=== PATIENT | female | born 1980 | race Caucasian/White ===

== ENCOUNTER 2016-11-08 15:59 | Emergency (ER) | payer OTHER ==
[2016-11-08 16:13] VITALS: BP 123/85
--- NOTE | 2016-11-08 19:13 | RAD ---
Indication: Right index finger injury. 3 views of the right index finger demonstrates no fracture although disc degenerative changes of the distal interphalangeal joint is noted. IMPRESSION: No definite fracture of the right index finger is noted.
--- NOTE | 2016-11-08 19:37 | UC ---
Hand/Wrist HPI - HPI Summary HPI Summary: SHUT RIGHT SECOND FINGER IN CAR DOOR. ABRASION TO FINGER. PAIN WITH BENDING AND BRUISING (TO MIDDLE PHALANGE). - History Of Current Complaint Chief Complaint: UCUpperExtremity Stated Complaint: FINGER INJURY Time Seen by Provider: 11/08/16 17:53 Hx Obtained From: Patient Hx Last Menstrual Period: 10/18/16 Onset/Duration: Sudden Onset, Lasting Hours, Still Present Severity Initially: Moderate Severity Currently: Moderate Character Of Pain: Dull, Aching Aggravating Factor(s): Movement, Flexion, Extension Related History: Dominant Hand Right - Allergies/Home Medications Allergies/Adverse Reactions: Allergies Allergy/AdvReac Type Severity Reaction Status Date / Time Azithromycin Allergy Mild Vomiting Verified 11/08/16 16:13 Erythromycin Allergy Mild Vomiting Verified 11/08/16 16:13 nuts Allergy Hives Uncoded 11/08/16 16:13 Home Medications: Home Medications NK [No Home Medications Reported] 11/08/16 [History Confirmed 11/08/16] PMH/Surg Hx/FS Hx/Imm Hx Previously Healthy: Yes - Surgical History Surgical History: Yes Surgery Procedure, Year, and Place: TUBAL LIGATION x2 - Family History Known Family History: Positive: Respiratory Disease - asthma - Social History Occupation: Employed Full-time Lives: With Family Alcohol Use: None Substance Use Type: None Smoking Status (MU): Heavy Every Day Tobacco Smoker Type: Cigarettes Amount Used/How Often: 199d Length of Time of Smoking/Using Tobacco: 12 Years Have You Smoked in the Last Year: Yes Household Exposure Type: Cigarettes Cessation Counseling: Patient Advised to Stop - Immunization History Most Recent Influenza Vaccination: current Review of Systems Constitutional: Negative Skin: Bruising Eyes: Negative ENT: Negative Respiratory: Negative Cardiovascular: Negative Gastrointestinal: Negative Genitourinary: Negative Motor: Negative Neurovascular: Negative Musculoskeletal: Arthralgia - RIGHT 2ND FINGER, Myalgia Neurological: Negative Psychological: Negative All Other Systems Reviewed And Are Negative: Yes Physical Exam Triage Information Reviewed: Yes Appearance: Well-Appearing, No Pain Distress, Well-Nourished Vital Signs: Initial Vital Signs Temp 98.3 F 11/08/16 16:08 Pulse 64 11/08/16 16:08 Resp 14 11/08/16 16:08 BP 123/85 11/08/16 16:08 Pulse Ox 98 11/08/16 16:08 Vital Signs Reviewed: Yes Eye Exam: Normal ENT Exam: Normal ENT: Positive: Normal ENT inspection, TMs normal Dental Exam: Normal Neck exam: Normal Neck: Positive: Supple, Nontender Respiratory Exam: Normal Respiratory: Positive: Chest non-tender, Lungs clear, Normal breath sounds Cardiovascular Exam: Normal Cardiovascular: Positive: RRR, No Murmur Abdominal Exam: Normal Musculoskeletal: Positive: No Edema, Strength Limited @ - RIGHT SECOND FINGER, ROM Limited @ - RIGHT SECOND FINGER Neurological Exam: Normal Psychological Exam: Normal Skin: Positive: Other - BRUISING & ABRASION RIGHT SECOND FINGER MIDDLE PHALANGE Hand/Wrist Course/Dx - Differential Dx/Diagnosis Differential Diagnosis/HQI/PQRI: Contusion, Dislocation, Fracture, Sprain, Strain, Tendonitis Provider Diagnoses: RIGHT SECOND FINGER SPRAIN, CONTUSION, ABRASION Discharge - Discharge Plan Condition: Stable Disposition: HOME Patient Education Materials: Finger Sprain (ED), Abrasion (ED), Crush Injury ( ED) Forms: *Work Release Referrals: [facility] [Outside] Jalyn Rangel MD [Primary Care Provider] -
== END 2016-11-08 19:43 | disposition home or self-care (01) ==
LOC: UCCORT 15:59
DX: S63.610A Unspecified sprain of right index finger, initial encounter (principal); S60.021A Contusion of right index finger without damage to nail, initial encounter; S60.410A Abrasion of right index finger, initial encounter; W23.0XXA Caught, crushed, jammed, or pinched between moving objects, initial encounter; Y93.9 Activity, unspecified; Y92.810 Car as the place of occurrence of the external cause; Z88.1 Allergy status to other antibiotic agents; F17.210 Nicotine dependence, cigarettes, uncomplicated
CPT/HCPCS: 73140; 99213; G0463

== ENCOUNTER 2018-03-11 16:09 | Emergency (ER) | payer OTHER ==
[2018-03-11] MEDS ORDERED: Nicotine Inhaler* 10 MG AMP INH PRN (18:17)
[2018-03-11] MEDS ORDERED: Mouth Piece, Nicotine* 1 EACH CARTRIDGE INH PRN (18:17)
--- NOTE | 2018-03-11 18:24 | ED ---
Substance Abuse/Use - HPI Summary HPI Summary: Patient is a 37 y/o F presenting to ED seeking detox for heroin usage. She reports that she has been having issues with heroin for 1.5 years. She states that she was recently having a difficult time at work and had a relapse. Patient reports that she has been using heavily over the past couple of weeks. Withdrawal Sx are denied. Patient reports last usage was the day before yesterday, states she took ecstasy last night. She states that she went to rehab before, with her being released from her most recent stay in November. She does not think outpatient rehab works for her and is interested in being detoxed as an in-patient. PMHx of anxiety, depression, she states she was prescribed Zoloft but does not take in. Chest pain, SOB, N/V/D, SI, HI are denied, PSHx of x2 tubal ligation. On triage, pain is rated 0/10, nothing is noted to aggravate/alleviate Sx. Home medications and allergies are reviewed. - History Of Current Complaint Chief Complaint: EDDetoxRequest Stated Complaint: DETOX Time Seen by Provider: 03/11/18 18:12 Hx Obtained From: Patient Hx Last Menstrual Period: 10/18/16 Onset/Duration of Drug/ETOH Abuse: Weeks - patient reports heroin usage for the past few weeks Ingestion History: Type/Name Of Drug - heroin, ecstasy Overdose Characteristics: IV - heroin Severity Currently: None - pain denied Aggravating Factor(s): Nothing Alleviating Factor(s): Nothing - Allergies/Home Medications Allergies/Adverse Reactions: Allergies Allergy/AdvReac Type Severity Reaction Status Date / Time MS Azithromycin Allergy Mild Vomiting Verified 03/11/18 16:22 [Azithromycin] MS Erythromycin Allergy Mild Vomiting Verified 03/11/18 16:22 [Erythromycin] nuts Allergy Hives Uncoded 03/11/18 16:22 PMH/Surg Hx/FS Hx/Imm Hx Respiratory History: Reports: Hx Asthma Sensory History: Denies: Hx Legally Blind Opthamlomology History: Denies: Hx Legally Blind Psychiatric History: Reports: Hx Anxiety - Surgical History Surgery Procedure, Year, and Place: TUBAL LIGATION x2 Infectious Disease History: No Infectious Disease History: Denies: Traveled Outside the [place] in Last 30 Days - Family History Known Family History: Positive: Respiratory Disease - asthma - Social History Alcohol Use: None Substance Use Type: Reports: None Hx Tobacco Use: Yes Smoking Status (MU): Heavy Every Day Tobacco Smoker Type: Cigarettes Amount Used/How Often: 199d Length of Time of Smoking/Using Tobacco: 12 Years Have You Smoked in the Last Year: Yes Review of Systems Positive: Other - patient is seeking detox for heroin usage Negative: Chest Pain Negative: Shortness Of Breath Negative: Vomiting, Diarrhea, Nausea Positive: Other - NEGATIVE: SI, HI All Other Systems Reviewed And Are Negative: Yes Physical Exam - Summary Physical Exam Summary: Appearance: Well-appearing, Well-nourished, lying in bed comfortably Skin: Warm, dry, no obvious rash Eyes: sclera anicteric, no conjunctival pallor ENT: mucous membranes moist, pharynx appears normal Neck: Supple, nontender Respiratory: Clear to auscultation, no signs of respiratory distress Cardiovascular: midl tachycardia. No murmurs. Normal distal pulses in tibial and radial bilaterally. Abdomen: Soft, nontender, normal active bowel sounds present Musculoskeletal: Normal, Strength/ROM Intact Neurological: A&Ox3, awake and alert, mentation is normal, speech is fluent and appropriate Psychiatric: affect is normal, does not appear anxious or depressed Triage Information Reviewed: Yes Vital Signs On Initial Exam: Initial Vitals Temp Pulse Resp BP Pulse Ox 98.9 F 100 18 140/92 100 03/11/18 16:19 03/11/18 16:19 03/11/18 16:19 03/11/18 16:19 03/11/18 16:19 Vital Signs Reviewed: Yes Diagnostics - Vital Signs Vital Signs Temp Pulse Resp BP Pulse Ox 03/11/18 16:19 98.9 F 100 18 140/92 100 - Laboratory Result Diagrams: 03/11/18 18:31 03/11/18 18:31 Lab Statement: Any lab studies that have been ordered have been reviewed, and results considered in the medical decision making process. Course/Dx - Diagnoses Provider Diagnoses: Substance abuse Discharge - Sign-Out/Discharge Documenting (check all that apply): Patient Departure - DC - Discharge Plan Condition: Good Disposition: HOME Patient Education Materials: Narcotic Safety (ED), Polysubstance Abuse (ED) Referrals: [facility],. [Z.BUSINESS, APPLICATION, OTHER] - 2 Days Additional Instructions: You have the information on the area facilities for drug rehab. We have given you a copy of your lab work which hopefully will help streamline an eventual admissions process. Return to the ED in case of any new or worsening of symptoms. - Billing Disposition and Condition Condition: GOOD Disposition: Home - Attestation Statements Document Initiated by Rocky: Yes Documenting Scribe: Emmanuel Anderson Provider For Whom Rocky is Documenting (Include Credential): Dr. Rob Madrid MD Scribe Attestation: I, Emmanuel Anderson, scribed for Dr. Rob Madrid MD on at 1425. Scribe Documentation Reviewed: Yes Provider Attestation: The documentation as recorded by the [email or web address], Emmanuel Anderson accurately reflects the service I personally performed and the decisions made by me, Dr. Rob Madrid MD
[2018-03-11 18:54] LABS: ABS Basophils 0.1 10^3/ul (0-0.2); ABS Eosinophils 0.1 10^3/ul (0-0.6); ABS Lymphocytes 2.3 10^3/ul (1.0-4.8); ABS Monocytes 0.6 10^3/ul (0-0.8); ABS Neutrophils 6.5 10^3/ul (1.5-7.7); ABS Nucleated RBC 0 10^3/ul; Eosinophil % 1.6 % (0-6); Hematocrit 40 % (35-47); Hemoglobin 13.9 g/dl (12.0-16.0); Lymphocyte % 23.6 % (25-47); Mean Corpuscular HGB Conc 34 g/dl (31-36); Mean Corpuscular Hemoglobin 30 pg (27-31); Mean Corpuscular Volume 88 fL (80-97); Mean Platelet Volume 7.9 um3 (7.4-10.4); Nucleated Red Blood Cells % 0.1; Platelet Count 388 10^3/ul (150-450); Red Cell Distribution Width 13 % (10.5-15); White Blood Count 9.5 10^3/ul (3.5-10.8)
[2018-03-11 19:08] LABS: EGFR Non-African American 106.9 (>60)
[2018-03-11 19:56] VITALS: BP 131/89
== END 2018-03-11 19:55 | disposition home or self-care (01) ==
LOC: ED 16:09
DX: F11.10 Opioid abuse, uncomplicated (principal); Z88.1 Allergy status to other antibiotic agents; F17.210 Nicotine dependence, cigarettes, uncomplicated
CPT/HCPCS: 36415; 80053; 80320; 84443; 84702; 85025; 99282; G0480

== ENCOUNTER 2019-06-20 20:01 | Emergency (ER) | payer OTHER ==
[2019-06-20 20:19] VITALS: BP 119/68
--- NOTE | 2019-06-20 20:25 | UC ---
Skin Complaint HPI - HPI Summary HPI Summary: face crusting and scabs that are concerning pt. she helps her room mate clean her infected mrsa area on her leg. she is now concerned she has mrsa. - History of Current Complaint Chief Complaint: UCSkin Time Seen by Provider: 06/20/19 20:20 Stated Complaint: SKIN ISSUE Hx Obtained From: Patient Hx Last Menstrual Period: 05/29/19 Pain Intensity: 0 Pain Scale Used: 0-10 Numeric Aggravating Factor(s): Touch Alleviating Factor(s): Nothing - Allergy/Home Medications Allergies/Adverse Reactions: Allergies Allergy/AdvReac Type Severity Reaction Status Date / Time azithromycin Allergy Vomiting Verified 06/20/19 20:13 erythromycin base Allergy Vomiting Verified 06/20/19 20:13 nuts Allergy Hives Uncoded 03/11/18 16:22 PMH/Surg Hx/FS Hx/Imm Hx Previously Healthy: Yes - Surgical History Surgical History: Yes Surgery Procedure, Year, and Place: TUBAL LIGATION x2 - Family History Known Family History: Positive: Respiratory Disease - asthma - Social History Alcohol Use: None Substance Use Type: None Substance Use Comment - Amount & Last Used: "does all the drugs" Smoking Status (MU): Heavy Every Day Tobacco Smoker Type: Cigarettes Amount Used/How Often: 1 ppd Length of Time of Smoking/Using Tobacco: 12 Years Have You Smoked in the Last Year: Yes Household Exposure Type: Cigarettes - Immunization History Most Recent Influenza Vaccination: current Review of Systems All Other Systems Reviewed And Are Negative: Yes Constitutional: Negative: Fever Skin: Positive: Rash. Negative: Bruising Physical Exam Triage Information Reviewed: Yes Appearance: Well-Appearing Vital Signs: Initial Vital Signs Temp 97.9 F 06/20/19 20:13 Pulse 88 06/20/19 20:13 Resp 16 06/20/19 20:13 BP 119/68 06/20/19 20:13 Pulse Ox 98 06/20/19 20:13 Vital Signs Reviewed: Yes Eyes: Positive: Conjunctiva Clear Respiratory: Positive: No respiratory distress Skin: Positive: Rashes - scabs on face, diff. stages of healing. Course/Dx - Course Course Of Treatment: Pt concerned about mrsa on skin since she helps room mate w/ amputed leg which is infected w/ mrsa. but on exam there was self inflected excoriations w/ lesions in different levels of healing. she is clearly picking her skin and i strongly encouraged her to keep area clean, no make up, and to stop picking. - Differential Diagnoses - Skin Complaint Differential Diagnoses: Abscess, Cellulitis, Contact Dermatitis, Drug Rash, Urticaria, Other - Diagnoses Provider Diagnosis: Superficial skin infection Discharge ED - Sign-Out/Discharge Documenting (check all that apply): Patient Departure All imaging exams completed and their final reports reviewed: No Studies - Discharge Plan Condition: Good Disposition: HOME Patient Education Materials: Impetigo (DC) Referrals: No Primary Care Phys,NOPCP [Primary Care Provider] - Additional Instructions: if worsening please return - Billing Disposition and Condition Condition: GOOD Disposition: Home
== END 2019-06-20 20:31 | disposition home or self-care (01) ==
LOC: UCCORT 20:01
DX: L08.9 Local infection of the skin and subcutaneous tissue, unspecified (principal); F17.210 Nicotine dependence, cigarettes, uncomplicated; Z88.1 Allergy status to other antibiotic agents; Z91.018 Allergy to other foods
CPT/HCPCS: 99211; G0463